=== PATIENT | female | born 1940 | race Two or more races ===

== ENCOUNTER 2020-04-22 15:56 | Emergency (ER) | payer MEDICARE, MEDICAID ==
[~2020-04-22] VITALS: Ht 154.9 cm; Wt 77.0 kg
[2020-04-22 16:38] VITALS: BP 157/70
[2020-04-22] MEDS ORDERED: ONDA4TAB6 PO (17:22)
== END 2020-04-22 17:47 | disposition home or self-care (01) ==
LOC: ER 15:57
DX: U07.1 COVID-19 (principal); Z79.899 Other long term (current) drug therapy
CPT/HCPCS: 99283